=== PATIENT | male | born 1990 | race African-American/Black ===

== ENCOUNTER 2017-05-13 12:40 | Emergency (ER) | payer OTHER, SELFPAY ==
--- NOTE | 2017-05-13 14:46 | RAD ---
RIGHT RIBS FOUR VIEWS: History: Right chest wall pain. FINDINGS/IMPRESSION: There is no evidence of displaced rib fracture or pneumothorax. POS: H
== END 2017-05-13 14:50 | disposition home or self-care (01) ==
LOC: ERS 12:40
DX: S20.211A Contusion of right front wall of thorax, initial encounter (principal); W19.XXXA Unspecified fall, initial encounter; Y99.0 Civilian activity done for income or pay

== ENCOUNTER 2017-12-08 09:34 | Emergency (ER) | payer OTHER, SELFPAY | END 2017-12-08 10:37 | disposition home or self-care (01) | LOC: ERS 09:34 | DX: J06.9 Acute upper respiratory infection, unspecified (principal); H92.01 Otalgia, right ear | CPT/HCPCS: 99282 ==

== ENCOUNTER 2018-01-14 08:25 | Emergency (ER) | payer SELFPAY | END 2018-01-14 09:30 | disposition home or self-care (01) | LOC: ERS 08:25 | DX: J20.9 Acute bronchitis, unspecified (principal) | CPT/HCPCS: 99283 ==

== ENCOUNTER 2022-11-12 11:34 | Emergency (ER) | payer OTHER, SELFPAY ==
[~2022-11-12 11:34] MED LIST: Iopamidol-370 76% 500 ML MDV (1 ML CHARGE) ONE
[2022-11-12] MEDS ORDERED: Ondansetron ODT 4 MG TAB ONE (11:52)
[2022-11-12] MEDS ORDERED: Mag-Al 1200 mg/1200 mg/30 ML UDCUP ONE (11:52)
[2022-11-12 12:09] LABS: #Basophils 0.1 thou/uL (0.0-0.2); #Eosinphils 0.1 thou/uL (0.0-0.7); #Monocytes 0.3 thou/uL (0.11-0.59); #Neutrophils 1.6 thou/uL (1.40-6.50); %Basophils 1.3 % (0.0-1.0); %Eosinophils 3.1 % (0.0-10.0); %Lymphocytes 45.7 % (21.0-51.0); %Monocytes 7.5 % (0.0-10.0); %Neutrophils 42.4 % (42.0-75.0); Hematocrit 48.1 % (42.0-52.0); Hemoglobin 15.6 g/dL (14.0-18.0); Mean Corpuscular HGB CONC 32.4 g/dL (32.0-36.0); Mean Corpuscular Hemoglobin 27.3 pg (27.0-31.0); Mean Corpuscular Volume 84.1 fl (78.0-98.0); Mean Platelet Volume 10.2 fL (7.4-10.4); Platelet Count 207 10x3/uL (130-400); RBC Distribution Width 13.5 % (11.5-14.5); Red Blood Cell (RBC) Count 5.72 mill/uL (4.70-6.10); White Blood Cell (WBC) Count 3.9 10x3/uL (4.8-10.8)
[2022-11-12 12:17] LABS: Bacteria/HPF None Seen HPF (None Seen); Bilirubin Negative (Negative); Blood, Urine Negative (Negative); CAUTI Indications for Culture Acute Hematuria; Clarity Clear (Clear); Glucose, Urine (Dipstick) Normal (Negative); Ketone, Urine Negative (Negative); Leukocyte Negative Leu/uL (Negative); Nitrite Negative (Negative); Protein, Urine (Dipstick) Negative (Neg-Trace); RBC/HPF 0-3 HPF (0-3); Squamous Epithelial None Seen HPF (0-3); Urobilinogen Normal mg/dL (Less than 2); WBC/HPF 0-3 HPF (0-3)
[2022-11-12 12:24] LABS: Urine Culture Reflex No No
[2022-11-12 12:36] LABS: ALT (SGPT) Less than 7 U/L (8-55); AST (SGOT) 15 U/L (5-34); Albumin 4.7 g/dL (3.5-5.0); Alkaline Phosphatase 55 U/L (40-110); Anion Gap 14 mmol/L (10-20); Bilirubin, Total 1.1 mg/dL (0.2-1.2); Calc. Creatinine Clearance 0 mL/min (70-130); Calcium 9.5 mg/dL (7.8-10.44); Carbon Dioxide 25 mmol/L (22-29); Chloride 105 mmol/L (98-107); Estimated GFR 83; Globulin 3.4 g/dL (2.4-3.5); Glucose 89 mg/dL (70-105); Lipase 22 U/L (8-78); Magnesium 1.9 mg/dL (1.6-2.6); Potassium 3.9 mmol/L (3.5-5.1); Protein, Total 8.1 g/dL (6.0-8.3); Sodium 140 mmol/L (136-145)
[2022-11-12 12:53] LABS: SARS-CoV-2 NAA Rapid Test Not Detected (NotDetected)
[2022-11-12 13:02] LABS: BUN (Urea Nitrogen) 7 mg/dL (8.9-20.6)
== END 2022-11-12 13:46 | disposition home or self-care (01) ==
LOC: ERS 11:34
DX: R16.0 Hepatomegaly, not elsewhere classified (principal); R11.2 Nausea with vomiting, unspecified; Z20.822 Contact with and (suspected) exposure to COVID-19
CPT/HCPCS: 36415; 74177; 80053; 81001; 83690; 83735; 84443; 85025; 96360; Q0162; Q9967

== ENCOUNTER 2023-09-17 07:39 | Outpatient (CLI) | payer BC | END 2023-09-17 07:40 | disposition home or self-care (01) | LOC: SCSMRI 07:39 | PROVIDERS: ATTEND Family Medicine | DX: M47.22 Other spondylosis with radiculopathy, cervical region (principal); M48.02 Spinal stenosis, cervical region | CPT/HCPCS: 72141 ==